=== PATIENT | female | born 1940 | race Caucasian/White ===

== ENCOUNTER 2023-07-17 16:29 | Emergency (ER) | payer MEDICARE ==
[~2023-07-17] VITALS: Ht 175.3 cm; Wt 113.4 kg
[2023-07-17 16:34] VITALS: BP 155/71; PULSE 78; RESP 18
== END 2023-07-17 20:00 | disposition left against medical advice (07) ==
LOC: EDH 16:29
DX: K59.00 Constipation, unspecified (principal); Z53.21 Procedure and treatment not carried out due to patient leaving prior to being seen by health care provider
CPT/HCPCS: 99281